=== PATIENT | female | born 1980 | race Caucasian/White ===

== ENCOUNTER 2018-03-24 11:51 | Inpatient (IN) ==
[2018-03-24] MEDS ORDERED: fentaNYL Citrate Inj 100 MCG/2 ML Ampul IV.PUSH PRN ×2 (14:27)
[2018-03-24] MEDS ORDERED: Sodium Chlor 0.9% Inj 500 ML IV.SIG PRN (14:27)
[2018-03-24] MEDS ORDERED: Oxytocin 30 Units/500ml Premix 30 UNITS/500 ML BAG IV.SIG ONE (14:27)
[2018-03-24] MEDS ORDERED: Naloxone Inj 0.4 MG/ML Vial IV.PUSH PRN (14:27)
[2018-03-24] MEDS ORDERED: Sod Chloride 0.9% Inj 1,000 ML IV.CONT PRN (14:27)
[2018-03-24] MEDS ORDERED: Citric Acid/Sodium Citrate Liq 30 ML UDC PO SCH (14:30)
--- NOTE | 2018-03-24 14:37 | P.HPOB ---
History of Present Illness Primary Care Physician: No Primary Care Physician [facility] History of Present Illness: 37 y/o F, at [id number] is sent in for IOL for oligohydramnios, SGA . Obhx: U/S today: 6lb 5oz (22%) FL (6%) , Oligo (LIMA 3) x 1 - 20 years ago medhx: none surghx: none meds: PNV, Prilosec, benadryl All: Phenergan - Inpatient Certification I certify that the inpatient services were ordered in accordance with Medicare regulations governing the order. This includes certification that hospital inpatient services are reasonable and necessary and in the case of services not specified as inpatient-only under 42 CFR 419.22(n), that they are appropriately provided as inpatient services in accordance to with the 2-midnight benchmark under 43 CFR 412.3(e) Estimated Total Length of Stay (Days): 2 Plans for Post Hospital Care: Home Review of Systems All other systems reviewed negative except as stated in HPI Medications and Allergies Active Medications: Active Medications Dinoprostone (Cervidil Vag Insert) 10 mg VAGINAL ONCE ONE Stop: 03/24/18 14:26 Allergies Allergy/AdvReac Type Severity Reaction Status Date / Time latex Allergy Severe Unverified 01/14/17 16:14 promethazine Allergy Severe Unverified 01/14/17 16:14 Home Medications Medication Instructions Recorded Confirmed Type nitrofurantoin monohyd/m-cryst 100 mg PO Q12H 03/24/18 03/24/18 History [Macrobid] omeprazole magnesium [Prilosec OTC] 20 mg PO DAILY 03/24/18 03/24/18 History vit,[id number] 1 tab PO DAILY 03/24/18 03/24/18 History [PNV 29-1] Exam Vital signs: Vital Signs 03/24/18 12:21 Temperature 98.7 F Pulse Rate 92 H Respiratory Rate 18 Blood Pressure 151/64 H Intake & Output 03/23/18 03/24/18 03/24/18 18:59 06:59 18:59 Weight 81.647 kg Other: Weight On Admission 81.647 kg Narrative: FH: 36 FHR: cat 1, +accels, no decels SVE: /50/-3, midposition, medium firmness Caprini VTE Risk Assessment Caprini VTE Risk Assessment: No/Low Risk (score <= 1) Caprini Risk Assessment Model: Point Value = 1 Point Value = 2 Point Value = 3 Point Value = 5 Age 41-60 Minor surgery BMI > 25 kg/m2 Swollen legs Varicose veins or History of unexplained or recurrent spontaneous Oral contraceptives or hormone replacement Sepsis (< 1 month) Serious lung disease, including pneumonia (< 1 month) Abnormal pulmonary function Acute myocardial infarction Congestive heart failure (< 1 month) History of inflammatory bowel disease Medical patient at bed rest Age 61-74 Arthroscopic surgery Major open surgery (> 45 min) Laparoscopic surgery (> 45 min) Malignancy Confined to bed (> 72 hours) Immobilizing plaster cast Central venous access Age >= 75 History of VTE Family history of VTE Factor V Leiden Prothrombin [id number] Lupus anticoagulant Anticardiolipin antibodies Elevated serum homocysteine Heparin-induced thrombocytopenia Other congenital or acquired thrombophilia Stroke (< 1 month) Elective arthroplasty Hip, pelvis, or leg fracture Acute spinal cord injury (< 1 month) Prophylaxis Regimen: Total Risk Factor Score Risk Level Prophylaxis Regimen 0-1 Low Early ambulation 2 Moderate Order ONE of the following: *Sequential Compression Device (SCD) *Heparin 5000 units SQ BID 3-4 Higher Order ONE of the following medications: *Heparin 5000 units SQ TID *Enoxaparin/Lovenox 40 mg SQ daily (WT < 150 kg, CrCl > 30 mL/min) *Enoxaparin/Lovenox 30 mg SQ daily (WT < 150 kg, CrCl > 10-29 mL/min) *Enoxaparin/Lovenox 30 mg SQ BID (WT < 150 kg, CrCl > 30 mL/min) AND/OR *Sequential Compression Device (SCD) 5 or more Highest Order ONE of the following medications: *Heparin 5000 units SQ TID (Preferred with Epidurals) *Enoxaparin/Lovenox 40 mg SQ daily (WT < 150 kg, CrCl > 30 mL/min) *Enoxaparin/Lovenox 30 mg SQ daily (WT < 150 kg, CrCl > 10-29 mL/min) *Enoxaparin/Lovenox 30 mg SQ BID (WT < 150 kg, CrCl > 30 mL/min) AND *Sequential Compression Device (SCD) Assessment and Plan - Diagnosis (1) 37 weeks gestation of Code(s): Z3A.37 - 37 weeks gestation of Status: Acute Plan: 37 y/o F, at [id number] is sent in for IOL for oligohydramnios, SGA . - Admit to L&D - Plan for cervadil induction - EFM cat 1, cont to monitor - labs reviewed, WNL - GBS negative (2) Oligohydramnios antepartum Code(s): O41.00X0 - Oligohydramnios, unspecified trimester, not applicable or unspecified Status: Acute Plan: U/S today: 6lb 5oz (22%) FL (6%) , Oligo (LIMA 3)
[2018-03-24 14:39] LABS: Baso % (Auto) 0.2 % (0.0-2.0); Eos % (Auto) 0.2 % (0.0-4.0); Hematocrit 31.2 % (35.0-46.0); Hemoglobin 10.5 gm/dL (11.6-15.3); Lymph # (Auto) 1.1 th/mm3 (1.0-4.8); Lymph % (Auto) 10.8 % (9.0-44.0); Mean Corpuscular HGB Conc 33.6 % (32.0-36.0); Mean Corpuscular Hemoglobin 32.6 pg (27.0-34.0); Mean Corpuscular Volume 96.8 fL (80.0-100.0); Mean Platelet Volume 8.7 fL (7.0-11.0); Mono # (Auto) 0.6 th/mm3 (0.0-0.9); Mono % (Auto) 6.5 % (0.0-8.0); Neut # (Auto) 8.1 th/mm3 (1.8-7.7); Neut % (Auto) 82.3 % (16.0-70.0); Platelet Count 180 th/mm3 (150-450); Red Blood Count 3.23 mil/mm3 (4.00-5.30); Red Cell Distribution Width 12.9 % (11.6-17.2); White Blood Count 9.9 th/mm3 (4.0-11.0)
[2018-03-24] MEDS ORDERED: Sodium Chloride 0.9% 2 ML Flush PRN IV.FLUSH (14:56)
--- NOTE | 2018-03-24 16:59 | P.PN ---
Subjective Interval history: [facility] Attending Patient seen, discussed risks of IOL, risks of , and risks/indications for C /S. Discussed IOL agents, will start with cervidil due to IUGR/oligohydramnios. All of the patient's questions were answered. SVE /-3. FHR reassuring. Cervicil placed without difficulty at 1425, patient tolerated well. Physical Exam Vital signs: Vital Signs 03/24/18 12:21 03/24/18 16:20 03/24/18 16:21 Temperature 98.7 F 98.5 F Pulse Rate 92 H 91 H Respiratory Rate 18 16 Blood Pressure 151/64 H 123/73 Intake & Output 03/23/18 03/24/18 03/24/18 18:59 06:59 18:59 Weight 81.647 kg Other: Weight On Admission 81.647 kg Results - Labs CBC & Chem 7: 03/24/18 12:40 Laboratory Results - last 24 hr 03/24/18 03/24/18 12:40 12:40 WBC 9.9 RBC 3.23 L Hgb 10.5 L Hct 31.2 L MCV 96.8 MCH 32.6 MCHC 33.6 RDW 12.9 Plt Count 180 MPV 8.7 Neut % (Auto) 82.3 H Lymph % (Auto) 10.8 [place] % (Auto) 6.5 Eos % (Auto) 0.2 Baso % (Auto) 0.2 Neut # (Auto) 8.1 H Lymph # (Auto) 1.1 [place] # (Auto) 0.6 Eos # (Auto) 0.0 Baso # (Auto) 0.0 WBC Differential . Differential Comment Auto diff final Blood Type O Positive
[2018-03-24 17:54] LABS: Amphetamine Urine With Conf Neg (Neg); Benzodiazepine Urine With Conf Neg (Neg)
[2018-03-24 18:04] LABS: Bilirubin,Urine Negative (Negative); Clarity,Urine Hazy (Clear); Color,Urine Yellow (Yellw/Straw); Glucose,Urine (UA) Negative (Negative); Leukocyte Esterase,Urine Negative (Negative); Mucus,Urine Few /lpf (Occasional); Nitrite,Urine Negative (Negative); Specific Gravity,Urine 1.019 (1.002-1.035); Squamous Epithelial Cell,Urine 7 /hpf (0-5)
[2018-03-24] MEDS: Sodium Chloride 0.9% 2 ML Flush BID IV.FLUSH SCH (20:21)
[2018-03-24] MEDS ORDERED: Acetaminophen 325 MG Tablet PO PRN (21:32)
--- NOTE | 2018-03-25 03:14 | P.OBLABOR ---
Subjective Interval history: Patient reports she is doing well. She still not feeling any contractions. Cervidil was removed at 315 and cervical exam was performed to evaluate progression. Objective Vital Signs: Vital Signs - 8 hr 03/24/18 19:39 03/24/18 19:40 03/24/18 20:49 Temperature 98.4 F Pulse Rate 93 H Respiratory Rate 18 18 Blood Pressure 122/67 03/24/18 23:07 Temperature 98.1 F Pulse Rate 92 H Respiratory Rate 18 Blood Pressure 125/64 Objective: Pelvic Exam: Cervix: Posterior Dilatation:1 Effacement: 50 Station:-3 Presentation: Vertex Membranes: intact Uterine Contractions: Irregular contractions FHT's: Category: 1 Baseline: 130 Reactive: yes Variability: Moderate Decels: None Assessment and Plan - Diagnosis (1) 37 weeks gestation of Code(s): Z3A.37 - 37 weeks gestation of Status: Acute Plan: 37 y/o F, at [id number] admitted for IOL for oligohydramnios, SGA . - cervadil x1 removed after 12 hrs (315am), cervical exam /-3, no cervical change compared to prior exam - second cervadil to be placed and pt will be re-evaluated to monitor progression - EFM cat 1, cont to monitor - VS WNL - GBS negative DW Dr. Bearden (2) Oligohydramnios antepartum Code(s): O41.00X0 - Oligohydramnios, unspecified trimester, not applicable or unspecified Status: Acute Plan: U/S today: 6lb 5oz (22%) FL (6%) , Oligo (LIMA 3)
[2018-03-25] MEDS ORDERED: Oxytocin 30 Units/500ml Premix 30 UNITS/500 ML BAG IV.SIG PRN (13:46)
[2018-03-25] MEDS: Sodium Chloride 0.9% 2 ML Flush BID IV.FLUSH SCH ×2 (14:34→23:56)
[2018-03-25] MEDS ORDERED: fentaNYL 2MCG-Bupiv 0.125% Epi 150 ML EPIDURAL ONE (19:13)
[2018-03-25] MEDS ORDERED: Lidocaine 1%/Epinephrine 1:100,000 Inj 30 ML Vial ONE (19:20)
[2018-03-25] MEDS ORDERED: fentaNYL Citrate Inj 100 MCG/2 ML Ampul EPIDURAL ONE (20:29)
[2018-03-25] MEDS ORDERED: fentaNYL 2MCG-Bupiv 0.125% Epi 150 ML EPIDURAL PRN (20:29)
[2018-03-25] MEDS ORDERED: Bupivacaine PF 0.25% Inj 10 ML Vial ONE (21:16)
[2018-03-26] MEDS ORDERED: Lidocaaine 1.5%/Epinephrine 1:200,000 PF Inj 5 ML Amp ONE (00:24)
[2018-03-26] MEDS ORDERED: Zolpidem Tartrate 5 MG Tablet PO PRN (01:07)
[2018-03-26] MEDS ORDERED: Acetaminophen 325 MG Tablet PO PRN (01:07)
[2018-03-26] MEDS ORDERED: Oxytocin 30 Units/500ml Premix 30 UNITS/500 ML BAG IV.CONT PRN (01:07)
[2018-03-26] MEDS ORDERED: Benzocaine 20% Top Spray 60 ML Can TOPICAL PRN (01:07)
[2018-03-26] MEDS ORDERED: Bisacodyl 10 MG Supp RECTAL PRN (01:07)
[2018-03-26] MEDS ORDERED: Naloxone Inj 0.4 MG/ML Vial IV.PUSH PRN (01:07)
[2018-03-26] MEDS ORDERED: Witch Hazel 50%/Glyderin 12.5% 40 Pad Jar RECTAL PRN (01:07)
--- NOTE | 2018-03-26 01:10 | P.OBDELI ---
Medical Induction of Labor: Yes Anesthesia: Epidural Episiotomy: none Vaginal Delivery: Normal Presentation: Occiput anterior Nuchal Cord: None Delayed Cord Clamping (45 sec): Yes Placenta: Spontaneous delivery, Intact Laceration: None Estimated blood loss (mL): 100 Infant: Female Infant Female A Infant Delivery Date: 03/26/18 Delivery Time: 00:59 Weight: 2.77 kg score (1 min): 8 score (5 min): 9 Additional Information: IUGR oligo induction
[2018-03-26] MEDS: Sodium Chloride 0.9% 2 ML Flush BID IV.FLUSH SCH (09:53)
[2018-03-26] MEDS ORDERED: Measles/Mumps/Rubella Vaccine Inj 0.5 ML Vial SQ ONE (16:00)
[2018-03-26] MEDS ORDERED: Diphtheria/Tetanus/Pertussis Vaccine Inj 0.5 ML Syringe IM ONE (16:00)
[2018-03-26] MEDS: Senna/Docusate Sodium 8.6/50 MG Tablet PO SCH (19:40)
[2018-03-27] MEDS: Sodium Chloride 0.9% 2 ML Flush BID IV.FLUSH SCH ×2 (08:28→22:48)
[2018-03-27] MEDS: Senna/Docusate Sodium 8.6/50 MG Tablet PO SCH ×2 (08:30→22:40)
--- NOTE | 2018-03-27 08:47 | P.PNOB ---
Subjective Post day: 1 Interval history: Patient's pain is well-controlled. Patient reports eating and drinking without any nausea or vomiting. Patient reports minimal bleeding. Patient has passed gas but no bowel movements. Patient is walking without lower extremity pain or shortness of breath. Objective Vital Signs/I&O: Vital Signs 03/26/18 20:00 03/27/18 08:00 Temperature 98.2 F 97.9 F Pulse Rate 94 H 20 L Respiratory Rate 18 20 Blood Pressure 110/71 127/81 Result Diagrams: 03/24/18 12:40 Objective Remarks: GENERAL: Well-nourished, well-developed patient. CARDIOVASCULAR: Regular rate and rhythm without murmurs, gallops, or rubs. RESPIRATORY: Breath sounds equal bilaterally. No accessory muscle use. ABDOMEN/GI: Abdomen soft, non-tender. Fundus: Firm, non-tender at umbilicus. GENITOURINARY: Light to moderate bleeding. EXTREMITIES: No cyanosis or edema, non-tender, without signs of DVT. Medications and IVs: Active Medications Acetaminophen (Tylenol) 650 mg PO Q4H PRN PRN Reason: HEADACHE Last Admin: 03/24/18 21:37 Dose: 650 mg Acetaminophen (Tylenol) 650 mg PO Q4H PRN PRN Reason: PAIN SCALE 1 TO 2 Al Hydroxide/Mg Hydroxide (Milk Of Magnesia Liq) 30 ml PO Q12H PRN PRN Reason: Mild Constipation Benzocaine (Americaine 20% Top [place]) 1 spray TOPICAL Q4H PRN PRN Reason: For Perineum Discomfort Bisacodyl (Dulcolax Supp) 10 mg RECTAL DAILY PRN PRN Reason: SEVERE CONSITIPATION Citric Acid/Sodium Citrate (Sodium Citrate/Citric Acid Liq) 30 ml PO CLASSIFIED AD CLERK [facility] Stop: 03/28/18 14:29 Fentanyl Citrate (Fentanyl Inj) 50 mcg IV.PUSH Q1H PRN PRN Reason: Pain Scale 3 - 5 Last Admin: 03/25/18 16:49 Dose: 50 mcg Fentanyl Citrate (Fentanyl Inj) 100 mcg IV.PUSH Q1H PRN PRN Reason: PAIN SCALE 6 TO 10 Lactated Ringer's (Lr 1000 Ml Inj) 1,000 mls @ 125 mls/hr IV.CONT .Q8H [facility] Last Admin: 03/26/18 18:14 Dose: Not Given Sodium Chloride (Ns Inj) 500 mls @ 1,000 mls/hr IV.SIG UNSCH PRN PRN Reason: SEE LABEL COMMENTS Sodium Chloride (Ns Inj) 1,000 mls @ 100 mls/hr IV.CONT .Q10H PRN PRN Reason: SEE LABEL COMMENTS Lactated Ringer's (Lr 1000 Ml Inj) 1,000 mls @ 3,000 mls/hr IV.SIG UNSCH PRN PRN Reason: compromise or epidural Last Infusion: 03/25/18 21:22 Dose: Infused Oxytocin (Pitocin 30 Units/Ns 500 Ml Premix) 30 units in 500 mls @ 1 mls/hr IV.SIG TITRATE PRN; Protocol PRN Reason: For induction of labor Last Admin: 03/25/18 14:35 Dose: 1 milliunit/min, 1 mls/hr Fentanyl/Bupivacaine/Sodium Chlor (Fentanyl 2 Mcg-Bupiv 0.125% Epi) 150 mls @ 12 mls/hr EPIDURAL PRN PRN PRN Reason: for Labor Pain Last Admin: 03/25/18 19:30 Dose: 12 mls/hr Oxytocin (Pitocin 30 Units/Ns 500 Ml Premix) 30 units in 500 mls @ 100 mls/hr IV.CONT UNSCH PRN PRN Reason: Heavy bleeding Ibuprofen (Motrin) 800 mg PO Q8H PRN PRN Reason: For Cramping Last Admin: 03/26/18 15:11 Dose: 800 mg Lactulose (Lactulose Liq) 30 ml PO DAILY PRN PRN Reason: SEVERE CONSITIPATION Lidocaine HCl (Xylocaine 1% Inj) 0.1 ml I-DERMAL PRN PRN PRN Reason: For IV start Stop: 03/27/18 14:26 Mineral Oil (Muri-Lube Oil) 10 ml TOPICAL PRN PRN PRN Reason: PRN perineal massage Naloxone HCl (Narcan Inj) 0.1 mg IV.PUSH Q2M PRN PRN Reason: for opiate reversal Naloxone HCl (Narcan Inj) 0.1 mg IV.PUSH Q2M PRN PRN Reason: for opiate reversal Ondansetron HCl (Zofran Inj) 4 mg IV.PUSH Q6H PRN PRN Reason: NAUSEA OR VOMITING Last Admin: 03/26/18 01:32 Dose: 4 mg Ondansetron HCl (Zofran Odt) 4 mg PO Q6H PRN PRN Reason: NAUSEA OR VOMITING Oxycodone/Acetaminophen (Percocet 5/325 Mg) 1 tab PO Q4H PRN PRN Reason: PAIN SCALE 3 TO 5 Senna/Docusate Sodium (Shara-Colace) 1 tab PO BID [facility] Last Admin: 03/27/18 08:30 Dose: Not Given Sennosides (Senokot) 17.2 mg PO Q12H PRN PRN Reason: Moderate Constipation Sodium Chloride (Ns Flush) 2 ml IV.FLUSH BID [facility] Last Admin: 03/27/18 08:28 Dose: Not Given Sodium Chloride (Ns Flush) 2 ml IV.FLUSH PRN PRN PRN Reason: FLUSH AFTER USING IV ACCESS Sodium Chloride (Ns Flush) 2 ml IV.FLUSH BID [facility] Last Admin: 03/27/18 08:28 Dose: Not Given Sodium Chloride (Ns Flush) 2 ml IV.FLUSH PRN PRN PRN Reason: FLUSH AFTER USING IV ACCESS Witch Victorina/Glycerin (Tucks Pads) 1 applicatio RECTAL QID PRN PRN Reason: HEMORRHOIDS Zolpidem Tartrate (Ambien) 5 mg PO HS PRN PRN Reason: SLEEP Assessment and Plan - Diagnosis (1) Vaginal delivery Code(s): O80 - Encounter for full-term uncomplicated delivery Status: Acute Plan: 37 y/o F, delivered as at [id number] , now PPD#1 Patient was counseled to do 6 weeks of pelvic rest. Patient was counseled to follow up in 6 weeks. Patient requested follow-up and contraception. --AF VSS --Continue routine care --Motrin and Percocet when necessary for pain --Encourage OOB --Pelvic rest for 6 weeks will need follow-up appointment at that time. --Contraception: unsure, will cont to discuss --Anticipate discharge tomorrow when baby is cleared
[2018-03-27 20:58] VITALS: RESP 18; TEMP 98
[2018-03-28 06:45] VITALS: BP 125/70; PULSE 84
--- NOTE | 2018-03-28 09:41 | P.PNOB ---
Subjective Post day: 2 Interval history: Ms Grove had no acute events overnight. She is ambulating, voiding, stooling, pain is well controlled, and eating. There is no dizziness, lochia is decreasing in volume. Pt will decide later about contraception. She is working on but augmenting with bottle at this point. The baby is being treated for hyperbilirubinemia so mother will discharge today and likely move upstairs to care for her baby. All questions answered to pt's satisfaction. Objective Vital Signs/I&O: Vital Signs 03/27/18 20:00 03/28/18 06:44 Temperature 98.0 F 98.0 F Pulse Rate 95 H 84 Respiratory Rate 18 18 Blood Pressure 105/63 125/70 Result Diagrams: 03/24/18 12:40 Objective Remarks: GENERAL: Well-nourished, well-developed patient in NAD. CARDIOVASCULAR: Regular rate and rhythm without murmurs, gallops, or rubs. RESPIRATORY: Breath sounds equal bilaterally. No accessory muscle use. ABDOMEN/GI: Abdomen soft, non-tender. Fundus: Firm, non-tender at umbilicus. GENITOURINARY: Light to moderate bleeding. EXTREMITIES: No cyanosis or edema, non-tender, without signs of DVT. Medications and IVs: Active Medications Acetaminophen (Tylenol) 650 mg PO Q4H PRN PRN Reason: HEADACHE Last Admin: 03/24/18 21:37 Dose: 650 mg Acetaminophen (Tylenol) 650 mg PO Q4H PRN PRN Reason: PAIN SCALE 1 TO 2 Al Hydroxide/Mg Hydroxide (Milk Of Magnesia Liq) 30 ml PO Q12H PRN PRN Reason: Mild Constipation Benzocaine (Americaine 20% Top [place]) 1 spray TOPICAL Q4H PRN PRN Reason: For Perineum Discomfort Bisacodyl (Dulcolax Supp) 10 mg RECTAL DAILY PRN PRN Reason: SEVERE CONSITIPATION Citric Acid/Sodium Citrate (Sodium Citrate/Citric Acid Liq) 30 ml PO RESERVOIR ENGINEERING MANAGER [facility] Stop: 03/28/18 14:29 Fentanyl Citrate (Fentanyl Inj) 50 mcg IV.PUSH Q1H PRN PRN Reason: Pain Scale 3 - 5 Last Admin: 03/25/18 16:49 Dose: 50 mcg Fentanyl Citrate (Fentanyl Inj) 100 mcg IV.PUSH Q1H PRN PRN Reason: PAIN SCALE 6 TO 10 Lactated Ringer's (Lr 1000 Ml Inj) 1,000 mls @ 125 mls/hr IV.CONT .Q8H [facility] Last Admin: 03/27/18 22:48 Dose: Not Given Sodium Chloride (Ns Inj) 500 mls @ 1,000 mls/hr IV.SIG UNSCH PRN PRN Reason: SEE LABEL COMMENTS Sodium Chloride (Ns Inj) 1,000 mls @ 100 mls/hr IV.CONT .Q10H PRN PRN Reason: SEE LABEL COMMENTS Lactated Ringer's (Lr 1000 Ml Inj) 1,000 mls @ 3,000 mls/hr IV.SIG UNSCH PRN PRN Reason: compromise or epidural Last Infusion: 03/25/18 21:22 Dose: Infused Oxytocin (Pitocin 30 Units/Ns 500 Ml Premix) 30 units in 500 mls @ 1 mls/hr IV.SIG TITRATE PRN; Protocol PRN Reason: For induction of labor Last Admin: 03/25/18 14:35 Dose: 1 milliunit/min, 1 mls/hr Fentanyl/Bupivacaine/Sodium Chlor (Fentanyl 2 Mcg-Bupiv 0.125% Epi) 150 mls @ 12 mls/hr EPIDURAL PRN PRN PRN Reason: for Labor Pain Last Admin: 03/25/18 19:30 Dose: 12 mls/hr Oxytocin (Pitocin 30 Units/Ns 500 Ml Premix) 30 units in 500 mls @ 100 mls/hr IV.CONT UNSCH PRN PRN Reason: Heavy bleeding Ibuprofen (Motrin) 800 mg PO Q8H PRN PRN Reason: For Cramping Last Admin: 03/26/18 15:11 Dose: 800 mg Lactulose (Lactulose Liq) 30 ml PO DAILY PRN PRN Reason: SEVERE CONSITIPATION Mineral Oil (Muri-Lube Oil) 10 ml TOPICAL PRN PRN PRN Reason: PRN perineal massage Naloxone HCl (Narcan Inj) 0.1 mg IV.PUSH Q2M PRN PRN Reason: for opiate reversal Naloxone HCl (Narcan Inj) 0.1 mg IV.PUSH Q2M PRN PRN Reason: for opiate reversal Ondansetron HCl (Zofran Inj) 4 mg IV.PUSH Q6H PRN PRN Reason: NAUSEA OR VOMITING Last Admin: 03/26/18 01:32 Dose: 4 mg Ondansetron HCl (Zofran Odt) 4 mg PO Q6H PRN PRN Reason: NAUSEA OR VOMITING Oxycodone/Acetaminophen (Percocet 5/325 Mg) 1 tab PO Q4H PRN PRN Reason: PAIN SCALE 3 TO 5 Senna/Docusate Sodium (Shara-Colace) 1 tab PO BID [facility] Last Admin: 03/27/18 22:40 Dose: Not Given Sennosides (Senokot) 17.2 mg PO Q12H PRN PRN Reason: Moderate Constipation Sodium Chloride (Ns Flush) 2 ml IV.FLUSH BID [facility] Last Admin: 03/27/18 22:48 Dose: Not Given Sodium Chloride (Ns Flush) 2 ml IV.FLUSH PRN PRN PRN Reason: FLUSH AFTER USING IV ACCESS Sodium Chloride (Ns Flush) 2 ml IV.FLUSH BID [facility] Last Admin: 03/27/18 22:48 Dose: Not Given Sodium Chloride (Ns Flush) 2 ml IV.FLUSH PRN PRN PRN Reason: FLUSH AFTER USING IV ACCESS Witch Victorina/Glycerin (Tucks Pads) 1 applicatio RECTAL QID PRN PRN Reason: HEMORRHOIDS Zolpidem Tartrate (Ambien) 5 mg PO HS PRN PRN Reason: SLEEP Assessment and Plan - Diagnosis (1) Vaginal delivery Code(s): O80 - Encounter for full-term uncomplicated delivery Status: Acute Plan: 37 y/o F, delivered as at [id number] , now PPD#2. Pt is progressing well with benign physical exam, lochia decreasing, pain well controlled. Ready for discharge today. 1. Routine care --Patient was counseled to observe 6 weeks of pelvic rest; to follow up in 6 weeks with her PCP; .and plans to discuss contraception with her PCP. --AFVSS --Motrin when necessary for pain --Encourage OOB/ambulation --Anticipate discharge today; baby will likely be held and mother is OK going to 6th floor with her baby Pt SW Dr Lockett and EMILIA Downey
== END 2018-03-28 10:22 | disposition home or self-care (01) ==
LOC: H2E 11:51 → H1EA 03-26 03:16
PROVIDERS: ADMIT Obstetrics & Gynecology; ATTEND Obstetrics & Gynecology